=== PATIENT | female | born 1950 | race Caucasian/White ===

== ENCOUNTER 2022-10-12 07:57 | Outpatient (CLI) | payer MEDICARE, BC, SELFPAY ==
--- NOTE | 2022-10-12 08:15 | CRLHL7_ITS ---
For Patients: As a result of the Cures Act, medical imaging exams and procedure reports are released immediately into your electronic medical record. You may view this report before your referring provider. If you have questions, please contact your health care provider. BILATERAL SCREENING MAMMOGRAM WITH COMPUTER-AIDED DETECTION AND TOMOSYNTHESIS TECHNIQUE: CC and MLO views were obtained. These mammographic images have been obtained using full-field digital technique. These mammographic images were interpreted with the benefit of computer-aided detection. Breast Tomosynthesis was used in this interpretation. COMPARISON FILM: 05/14/21, 05/08/20, 12/07/18. FINDINGS: There are scattered areas of fibroglandular density IMPRESSION: There is no radiographic evidence for malignancy. ASSESSMENT: BI-RADS Category 1: Negative RECOMMENDATION: Routine screening mammogram in 1 year. A lay language report of this examination will be provided to the patient. Hardeep Zimmerman M.D. Diagnostic Radiologist [email or web address] PATTIE/remi / be/Dictated by: Hardeep Zimmerman MD @ 10/12/2022 12:04:00 PM (Electronically Signed)
== END 2022-10-12 07:58 | disposition home or self-care (01) ==
LOC: MAMMO 08:03
PROVIDERS: PCP Family Medicine; Visit Provider Family Medicine
DX: Z12.31 Encounter for screening mammogram for malignant neoplasm of breast (principal)
CPT/HCPCS: 77063; 77067

== ENCOUNTER 2022-10-17 07:23 | Outpatient (CLI) | payer MEDICARE, BC, SELFPAY | END 2022-10-17 07:24 | disposition home or self-care (01) | LOC: NFLDREF 19:35 | PROVIDERS: PCP Family Medicine; Referring Provider Family Medicine; Visit Provider Family Medicine | DX: Z00.00 Encounter for general adult medical examination without abnormal findings (principal); D50.9 Iron deficiency anemia, unspecified; E78.5 Hyperlipidemia, unspecified; I10 Essential (primary) hypertension | CPT/HCPCS: 80053; 80061; 82728 ==

== ENCOUNTER 2022-10-27 13:46 | Outpatient (CLI) | payer MEDICARE, BC, SELFPAY ==
--- NOTE | 2022-10-27 14:00 | CRLHL7_ITS ---
For Patients: As a result of the Century Cures Act, medical imaging exams and procedure reports are released immediately into your electronic medical record. You may view this report before your referring provider. If you have questions, please contact your health care provider. DXA BONE MINERAL DENSITY STUDY Reason for exam: Screening. Current height (in): 64.5. Weight (lb): 240 Menopause age: 56 Ethnicity: White. 1. Have you had a previous hip or vertebral fracture? No. 2. Have you had any fractures during your adult life which did not result from significant trauma (e.g., auto accident)? No. 3. Did either of your parents have a hip fracture? No. 4. Do you smoke? No. 5. Have you ever taken Glucocorticoids? No. 6. Do you have rheumatoid arthritis? No. 7. Do you have secondary osteoporosis? No. 8. Do you drink 3 or more alcoholic drinks per day? No. 9. Are you being treated for osteoporosis? No. 10. Have you ever taken any of the following medications: Actonel, Evista, Fosamax, Miacalcin, Reclast, Boniva, Forteo, HRT (i.e., estrogen/hormone therapy), Protelos, Prolia, Vitamin D, Calcium, other ??? please specify. ANSWER: No. 11. Do you have any of the following medical conditions: Anorexia or bulimia, asthma or emphysema, end stage renal disease, hyperparathyroidism, any seizure disorders, cancer, inflammatory bowel diseases, hysterectomy, other ??? please specify. ANSWER: No. 12. What was your maximum height (inches)? 65. 13. Do you perform weight bearing exercise regularly? No. 14. Do you regularly consume dairy products? Yes. 15. Do you drink caffeinated beverages? Yes. If female: 16. At what age did your period start? 14. 17. Are you premenopausal? No. 18. How many full-term pregnancies have you had? 2. 19. Have you ever missed your period for more than 6 months in a row (not including or menopause)? No. TECHNIQUE: Bone mineral density study was performed using the [employer]. FINDINGS: The results of the study expressed as bone mineral density (BMD) are as follows: Lumbar spine L1, L2, L4: BMD: 1.077 g/cm2. T-score: 0.4. Z-score: 2.5 Neck Left: BMD: 0.816 g/cm2. T-score: -0.3. Z-score: 1.5 Right: BMD: 0.820 g/cm2. T-score: -0.3. Z-score: 1.5 Total Left: BMD: 0.955 g/cm2. T-score: 0.1. Z-score: 1.6 Right: BMD: 0.999 g/cm2. T-score: 0.5. Z-score: 2.0 IMPRESSION: Normal bone density. *Comparison exams done prior to 12/2019 were performed on different unit, [facility]. COMPARISON: Compared with scan of 06/14/2010, the bone mineral density has decreased by 1.4 percent at the spine and decreased by 1.7 percent at the hip. VINCE MACIEL M.D. Diagnostic/Nuclear Medicine Radiologist [email or web address] JMN:chelsey barbosa/Dictated by: Vince Maciel MD @ 10/27/2022 2:39:00 PM (Electronically Signed)
== END 2022-10-27 13:47 | disposition home or self-care (01) ==
LOC: RAD 13:47
PROVIDERS: PCP Family Medicine; Visit Provider Family Medicine
DX: Z13.820 Encounter for screening for osteoporosis (principal)
CPT/HCPCS: 77080

== ENCOUNTER 2023-10-16 08:55 | Outpatient (CLI) | payer MEDICARE, BC, SELFPAY ==
--- NOTE | 2023-10-16 09:15 | MM_ITS ---
Patient: COURTNEY FERNÁNDEZ [facility] Facility:?[facility] Patient ID:?[id number] Site Patient ID:?[id number] Site :?1950 Study:?XRay-Breast Bilateral 3D W/CAD-10/16/2023 9:26:15 AM Ordering Physician:Hilary Final Report: BILATERAL SCREENING MAMMOGRAM WITH COMPUTER-AIDED DETECTION AND TOMOSYNTHESIS TECHNIQUE: CC and MLO views were obtained. These mammographic images have been obtained using full-field digital technique. These mammographic images were interpreted with the benefit of computer-aided detection. Breast Tomosynthesis was used in this interpretation. COMPARISON FILM: 10/12/22, 05/14/21, 05/08/20. FINDINGS: There are scattered areas of fibroglandular density. IMPRESSION: There is no radiographic evidence for malignancy. ASSESSMENT: BI-RADS Category 1: Negative RECOMMENDATION: Routine screening mammogram in 1 year. A lay language report of this examination will be provided to the patient. Hardeep Zimmerman M.D. Diagnostic Radiologist [email or web address] DSM/sp R& Transcribed: 3:02 p.m. SP/Dictated by: Hardeep Zimmerman MD @ 10/16/2023 10:58:00 AM Signed by:?Hardeep Zimmerman MD @10/16/2023 3:54:11 PM (Electronic Signature)
== END 2023-10-16 08:56 | disposition home or self-care (01) ==
PROVIDERS: PCP Family Medicine; Visit Provider Family Medicine
DX: Z12.31 Encounter for screening mammogram for malignant neoplasm of breast (principal)
CPT/HCPCS: 77063; 77067

== ENCOUNTER 2023-10-30 11:35 | Outpatient (CLI) | payer MEDICARE, BC, SELFPAY | END 2023-10-30 11:36 | disposition home or self-care (01) | LOC: NFLDREF 11-01 07:09 | PROVIDERS: PCP Family Medicine; Referring Provider Family Medicine; Visit Provider Family Medicine | DX: E78.5 Hyperlipidemia, unspecified (principal); I10 Essential (primary) hypertension; R73.9 Hyperglycemia, unspecified | CPT/HCPCS: 80053; 80061 ==

== ENCOUNTER 2023-11-26 21:04 | Emergency (ER) | payer MEDICARE, BC, SELFPAY ==
[2023-11-26] VITALS (7 sets, daily range): BP systolic 152–175; BP diastolic 79–94; PULSE 74–108; RESP 18; TEMP 36.6; O2SAT 88–99; BMI 33.8
--- NOTE | 2023-11-26 21:21 | CT_ITS ---
Patient: COURTNEY FERNÁNDEZ KALEN Facility:?[facility] Patient ID:?[id number] Site Patient ID:?[id number]. Site :?1950 Study:?CT-Abdomen/Pelvis W/ISOVUE 370 98CC-11/26/2023 10:15:41 PM Ordering Physician:SARKIS Final Report: INDICATION: Left flank, left lower quadrant abdominal pain TECHNIQUE: CT Abdomen and pelvis with i.v. contrast. Coronal and sagittal reformats were obtained. CONTRAST: 98 mL Isovue 370 COMPARISON: 07/15/2016 FINDINGS: Lower chest: Smooth septal thickening is present in the left lung base. Liver: In the right posterior segment of the liver, there is a stable linear hypodensity which may represent a parenchymal scar. Spleen: Unremarkable. Pancreas: Unremarkable. Gallbladder: Unremarkable. Kidney: Moderate right renal pelviectasis is present with enhancement of the urothelium of the left ureter noted. There is a stone in the distal left ureter measuring 5 mm. There is a stone in the lower pole of the left kidney that measures 7 mm. Adrenal: A 1 cm right adrenal nodule is noted without interval change. Bowel: Surgical bk are seen along the greater curvature of the stomach, likely due to prior bariatric gastric sleeve procedure. The appendix is normal in appearance and size. Vascular: Unremarkable. Lymph: Unremarkable. Peritoneum: Unremarkable. No pneumoperitoneum is seen. No significant ascites is noted. Pelvis: Unremarkable. Soft tissue: Unremarkable. Bone: Unremarkable for age. IMPRESSIONS: 1. Smooth septal thickening is present in the left lung base. This may be due to asymmetric interstitial edema. Follow-up imaging is recommended to document resolution and to exclude neoplastic infiltration. 2. A 1 cm right adrenal nodule is noted without interval change. 3. Moderate right renal pelviectasis is present with enhancement of the urothelium of the left ureter noted. There is a stone in the distal left ureter measuring 5 mm. Correlation with urinalysis is recommended to exclude a superimposed ascending urinary tract infection. Dictated by Gerber Matta MD @ 11/26/2023 10:41:51 PM Please note that all CT scans at this facility use dose modulation, iterative reconstruction, and/or weight-based dosing when appropriate to reduce radiation dose to as low as reasonably achievable. Dictated by: Gerber Matta MD @ 11/26/2023 22:42:05 Signed by:?Gerber Matta MD @11/26/2023 10:42:05 PM (Electronic Signature)
--- NOTE | 2023-11-26 21:25 | ED_ITS ---
HPI - Abdominal Pain General Date Seen: 11/26/23 Chief Complaint: Abdominal Pain Stated Complaint: Severe abdominal pain,vomiting bile Time Seen by Provider: 11/26/23 21:08 Source: patient Mode of arrival: ambulatory Limitations: no limitations History of Present Illness HPI narrative: Patient is a 72-year-old female with a history of recent diagnosis of adenocarcinoma of the lung and a previous episode of nephrolithiasis presenting for left lower abdomen, left flank pain. She states is they have been traveling to [place] and on the flight home started about 18:15 she has been noticing left flank pain. They came straight here from the airport. She has been having vomiting and is now dry heaving because she states there is nothing left in her stomach. States she has had a kidney stone before but does not remember what it feels like. She is described as a dull plane in her left flank. Denies fevers, chills, weakness, numbness, diarrhea, constipation. States she has not started treatment for adenocarcinoma yet in the only symptom she has is the changes in her voice. No other concerns noted at this time. Has not taking anything at for nausea or pain. Related Data Home Medications Medication Instructions Recorded Confirmed cetirizine 10 mg tablet 10 mg PO QDAY PRN 10/11/23 11/01/23 fluticasone propionate 50 1 spray intranasal QDAY 10/11/23 11/01/23 mcg/actuation nasal spray,suspension (Allergy Relief (fluticasone)) Previous Rx's Medication Instructions Recorded atorvastatin 10 mg tablet 10 mg PO QHS #90 tabs 11/01/23 lisinopril 5 mg tablet 5 mg PO QDAY #90 tabs 11/01/23 semaglutide 2 mg/dose (8 mg/3 mL) 2 mg (0.75 mL) subcut QWEEK #3 mL 11/01/23 subcutaneous pen injector (Ozempic) Allergies Allergy/AdvReac Type Severity Reaction Status Date / Time No Known Drug Allergies Allergy Verified 11/01/23 07:18 Review of Systems Status of ROS Reports: 10 or more systems reviewed and unremarkable except as noted in History and below [facility] Medical History Health care directive on file ?Z78.9 - Other specified health status (ICD-10) Health care directive on file ?Z78.9 - Other specified health status (ICD-10) Paralysis of left vocal cord ?J38.01 - Paralysis of vocal cords and larynx, unilateral (ICD-10) History of adenomatous polyp of colon ?Z86.010 - Personal history of colonic polyps (ICD-10) Morbid obesity with BMI of 40.0-44.9, adult ?E66.01 - Morbid (severe) obesity due to excess calories (ICD-10) ?Z68.41 - Body mass index [BMI] 40.0-44.9, adult (ICD-10) Morbid obesity ?E66.01 - Morbid (severe) obesity due to excess calories (ICD-10) Environmental allergies ?Z91.09 - Other allergy status, other than to drugs and biological substances (ICD-10) Encounter for counseling regarding advance directives (06/14/18) ?Z71.89 - Other specified counseling (ICD-10) Iron deficiency anemia (~04/2021) ?D50.9 - Iron deficiency anemia, unspecified (ICD-10) Hypertension ?I10 - Essential (primary) hypertension (ICD-10) Surgical History Status post phlebectomy ?Z98.890 - Other specified postprocedural states (ICD-10) S/P right knee arthroscopy (06/01/21) ?Z98.890 - Other specified postprocedural states (ICD-10) History of tonsillectomy (1959) ?Z90.89 - Acquired absence of other organs (ICD-10) History of sleeve gastrectomy (2015) ?Z90.3 - Acquired absence of stomach [part of] (ICD-10) History of arthroscopic knee surgery (07/14/15) ?Z98.890 - Other specified postprocedural states (ICD-10) Family History Mother Colon cancer, Onset Age: 86 Father Myocardial infarction, Onset Age: 66 Son Migraine Daughter Seizure Aunt Colon cancer Paternal Grandmother Colon cancer Social History Narrative: , retired [employer] [facility] [employer], 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, 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 Exercises regularly- 5x/week stationary bike, swim, weights 45min Non smoker Social drinker- 3/week What is your current living situation?: I presently have a place to live Problems where you live: no known problems In the past 12 months, utilities in danger of being shut off: no In past 12 months, lack of transportation kept you from medical appts, meetings, work, or getting things needed for daily living: no In the past 12 mos, have been you worried that your food would run out before you had money to buy more?: never true In the past 12 mos, the food you bought just didn't last and you didn't have money to buy more?: never true Smoking Status: Never smoker Do you use any of these nicotine containing products: None Second hand tobacco smoke exposure: No How often do you have a drink containing alcohol: never AUDIT-C Alcohol total score: 0 Non-prescribed substance use: denies use How often does anyone, including family, friends and others, physically hurt you : never How often does anyone, including family, friends and others, insult or talk down to you: never How often does anyone, including family, friends and others, threaten you with harm: never How often does anyone, including family, friends and others, scream or curse at you: never Little interest or pleasure in doing things: not at all Feeling down, depressed, or hopeless: several days service: No Exam Narrative: Exam Narrative: Const: Well-nourished, Well-developed, in moderate distress Eyes: PERRL, no conjunctival injection, and symmetrical lids HENT: Atraumatic external nose and ears. Moist mucous membranes. Neck: Symmetric, trachea midline, No thyromegaly. CVS: RRR, No murmurs or gallops. Peripheral pulses 2+ and equal in all extremities RESP: Unlabored respiratory effort. Clear to auscultation bilaterally. GI: Nontender/Nondistended, No rebound or guarding. No CVA tenderness MSK:Extremities w/o deformity, Normal Active ROM Skin: Warm, Dry. No rashes or lesions. Neuro: Normal Muscle tone, No focal neurological deficits. Psych: Awake, Alert, & Oriented x3. Appropriate mood and affect. Const: Vital Signs, click to edit/add: Vital Signs - 24 hr 11/26/23 21:10 11/26/23 22:19 11/26/23 22:34 Temperature 97.9 F Pulse Rate 95 108 H Pulse Rate [Pulse Oximeter] 74 Respiratory Rate 18 Blood Pressure Blood Pressure [Ri ght Forearm] 175/83 H Pulse Oximetry 96 88 95 Oxygen Delivery Me thod Room Air 11/26/23 22:35 Temperature Pulse Rate 98 Pulse Rate [Pulse Oximeter] Respiratory Rate Blood Pressure 152/79 H Blood Pressure [Ri ght Forearm] Pulse Oximetry 98 Oxygen Delivery Me thod Course Vital Signs Vital signs: Initial Vital Signs Temperature 97.9 F 11/26/23 21:10 Temperature Source Temporal Artery Scan 11/26/23 21:10 Pulse Rate 74 11/26/23 21:10 Respiratory Rate 18 11/26/23 21:10 Blood Pressure 175/83 H 11/26/23 21:10 Blood Pressure Mean 113 H 11/26/23 21:10 Blood Pressure Position Sitting 11/26/23 21:10 Pulse Oximetry 96 11/26/23 21:10 Oxygen Delivery Method Room Air 11/26/23 21:10 Vital Signs Temperature 97.9 F 11/26/23 21:10 Pulse Rate 74 11/26/23 21:10 Respiratory Rate 18 11/26/23 21:10 Blood Pressure 175/83 H 11/26/23 21:10 Pulse Oximetry 96 11/26/23 21:10 Oxygen Delivery Method Room Air 11/26/23 21:10 Temperature 97.9 F 11/26/23 21:10 Pulse Rate 98 11/26/23 22:35 Respiratory Rate 18 11/26/23 21:10 Blood Pressure 152/79 H 11/26/23 22:35 Pulse Oximetry 98 11/26/23 22:35 Oxygen Delivery Method Room Air 11/26/23 21:10 Medications Administered Medications: Generic Name Dose Route Start Last Admin Trade Name Freq PRN Reason Stop Dose Admin Sodium Chloride 1,000 mls @ 1,000 mls/hr 11/26/23 21:30 11/26/23 22:47 0.9 % Sodium Chloride 1000 Ml IV 11/26/23 22:29 Infused .Q1H BABITA Infusion Ketorolac Tromethamine 15 mg 11/26/23 21:21 11/26/23 21:37 Ketorolac 15 Mg/Ml Inj IVP 11/26/23 21:22 15 mg ONCE ONE Administration Ondansetron HCl 4 mg 11/26/23 21:21 11/26/23 21:36 Ondansetron 2 Mg/Ml Inj IVP 11/26/23 21:22 4 mg ONCE ONE Administration MDM - Abdominal Pain MDM Narrative Medical decision making narrative: Patient is 72-year-old female presenting for left flank/left lower quadrant abdominal pain. She does have previous history of gastric sleeve surgery. Pain is in left flank it started acutely. She is unable to sit still due to the pain. Initially this does look like a kidney stone. Will do a CT scan to better evaluate this. Will also give her nausea and pain medication and give her fluids as she states she feels like she is dehydrated. Were also ordered EKG, troponin, COVID/flu/RSV, urinalysis, CBC, CMP. Patient is feeling much better after the Toradol. No other complaints at this time. Lab work returned showing no concerning abnormalities. Urinalysis shows blood in the urine but no signs of UTI. COVID/flu/RSV negative troponin negative EKG shows no concerning findings. CT scan was done and returned showing right renal pelviectasis and enhancement of the left ureter. There is a distal left 5 mm kidney stone. This is likely the cause of her symptoms. Again urinalysis shows no signs of UTI. She is doing well be discharged with Toradol and Zofran through [facility]. Lab Data Labs: Lab Results 11/26/23 11/26/23 11/26/23 Range/Units 21:21 21:39 22:30 WBC 9.12 (4.50-11.00) K/uL RBC 4.16 (4.00-5.20) m/uL Hgb 13.5 (12.0-16.0) gm/dL Hct 40.8 (33.0-51.0) % MCV 98 (80-100) fL MCH 33 (26-34) pg MCHC 33 (32-36) gm/dL RDW Coeff of Colin 13.5 (11.5-15.5) % Plt Count 270 (140-440) K/uL Neut % (Auto) 82.6 H (42.0-72.0) % Lymph % (Auto) 11.5 L (20-44) % [place] % (Auto) 5.3 (0.0-11.0) % Eos % (Auto) 0.4 (0.0-7.0) % Baso % (Auto) 0.1 (0.0-3.0) % Neut # (Auto) 7.50 H (1.7-7.0) K/uL Lymph # (Auto) 1.00 (0.90-2.90) K/uL [place] # (Auto) 0.50 (0.00-0.90) K/UL Eos # (Auto) 0.04 (0.00-0.50) K/uL Baso # (Auto) 0.01 (0.00-0.30) K/uL Abs Immat Gran (auto) 0.01 (0.00-0.30) K/uL Imm/Tot Granulo (auto) 0.1 % Sodium 139 (135-149) mmol/L Potassium 3.8 (3.6-5.1) mmol/L Chloride 108 (96-114) mmol/L Carbon Dioxide 22 (20-32) mmol/L Anion Gap 9 (7-15) mEq/L BUN 19 (7-30) mg/dL Creatinine 0.8 (0.5-1.5) mg/dL Estimated Creat Clear 47.10 Estimated GFR 79 ml/min Glucose 135 H (60-115) mg/dL Calcium 9.6 (8.4-10.6) mg/dL Total Bilirubin 0.8 (0.1-1.5) mg/dL AST 30 (12-35) U/L ALT 18 (4-35) U/L Alkaline Phosphatase 74 (40-150) U/L Total Protein 7.6 (6.0-8.3) g/dL Albumin 4.6 (3.3-5.0) g/dL Urine Color Yellow (Yellow) Urine Appearance Clear (Clear) Urine pH 7.0 (5.0-8.5) Ur Specific [place] 1.015 (1.000-1.030) Urine Protein Negative (Negative) Urine Glucose (UA) Negative (Negative) Urine Ketones 1+ A (Negative) Urine Blood 3+ A (Negative) Urine Nitrite Negative (Negative) Urine Bilirubin Negative (Negative) Urine Urobilinogen 0.2 (0.2-1.0) Ur Leukocyte Esterase Negative (Negative) Urine RBC 25-50 A (0-2) Urine WBC 0-2 (0-5) Ur Squamous Epith Cells Few (None-Few) Urine Bacteria None (None) SARS-CoV-2 (PCR) Negative SARS-CoV-2 (Negative) Influenza Type A (PCR) Negative PCR FLU A (Negative) Influenza Type B (PCR) Negative PCR FLU B (Negative) RSV (PCR) Negative PCR RSV (Negative) POC Troponin I 0.00 L (0.01-0.04) ng/ml Imaging Data CT scan abdomen pelvis: Radiologist's impression: 1. Smooth septal thickening is present in the left lung base. This may be due to asymmetric interstitial edema. Follow-up imaging is recommended to document resolution and to exclude neoplastic infiltration. 2. A 1 cm right adrenal nodule is noted without interval change. 3. Moderate right renal pelviectasis is present with enhancement of the urothelium of the left ureter noted. There is a stone in the distal left ureter measuring 5 mm. Correlation with urinalysis is recommended to exclude a superimposed ascending urinary tract infection. Dictated by Gerber Matta MD @ 11/26/2023 10:41:51 PM Please note that all CT scans at this facility use dose modulation, iterative reconstruction, and/or weight-based dosing when appropriate to reduce radiation dose to as low as reasonably achievable. Dictated by: Gerber Matta MD @ 11/26/2023 22:42:05 ECG Data Attestation: I personally reviewed and interpreted this ECG as follows: Prior ECG tracings: not available for review Interpretation: Normal sinus rhythm with a first-degree AV block, normal axis, rest of intervals within normal limits, no ST or T-wave abnormalities Discharge Plan Discharge Clinical Impression: Left nephrolithiasis Patient Disposition: Home, Self-Care Condition: Improved Instructions: Kidney Stones (ED) Additional Instructions: Take the Toradol as needed for pain. Use Zofran as needed for nausea. Stone should pass on its own. If he starts developing symptoms of a urinary tract infection return to emergency department or see your primary care provider for evaluation for UTI. Return for any other new or worsening symptoms. Prescriptions: No Action cetirizine 10 mg tablet 10 mg PO QDAY PRN fluticasone propionate [Allergy Relief (fluticasone)] 50 mcg/actuation spray,suspension 1 spray intranasal QDAY Rx Instructions: administer into each nostril lisinopril 5 mg tablet 5 mg PO QDAY Qty: 90 3RF atorvastatin 10 mg tablet 10 mg PO QHS Qty: 90 3RF Ozempic 2 mg/dose (8 mg/3 mL) pen injector 2 mg subcut QWEEK Qty: 3 4RF Follow Up/Referrals: Nidia Miramontes MD [Primary Care Provider] - Stand Alone Forms: [employer] Info Instructions
[2023-11-26] MEDS: 0.9 % SODIUM CHLORIDE 1000 ml 1,000 ML IV (21:35)
[2023-11-26] MEDS: ONDANSETRON 2 MG/ML inj 4 MG IVP (21:36)
[2023-11-26] MEDS: KETOROLAC 15 MG/ML inj IVP (21:37)
[2023-11-26 21:44] LABS: Basophils Absolute Auto 0.01 K/uL (0.00-0.30); Basophils Percent Auto 0.1 % (0.0-3.0); Eosinophils Absolute Auto 0.04 K/uL (0.00-0.50); Eosinophils Percent Auto 0.4 % (0.0-7.0); Hematocrit 40.8 % (33.0-51.0); Hemoglobin* 13.5 gm/dL (12.0-16.0); Immature Granulocytes Abs Auto 0.01 K/uL (0.00-0.30); Immature Granulocytes Pct Auto 0.1 %; Lymphocytes Percent Auto 11.5 % (20-44); Mean Corpuscular HGB Conc 33 gm/dL (32-36); Mean Corpuscular Hemoglobin 33 pg (26-34); Mean Corpuscular Volume 98 fL (80-100); Monocytes Percent Auto 5.3 % (0.0-11.0); Neutrophils Percent Auto 82.6 % (42.0-72.0); Platelet Count* 270 K/uL (140-440); RDW Coefficient of Variation % 13.5 % (11.5-15.5); Red Blood Count 4.16 m/uL (4.00-5.20); White Blood Count* 9.12 K/uL (4.50-11.00)
[2023-11-26 21:45] LABS: Slide Review Reflex No
[2023-11-26 21:57] LABS: Albumin* 4.6 g/dL (3.3-5.0); Chloride* 108 mmol/L (96-114)
[2023-11-26 21:58] LABS: Potassium* 3.8 mmol/L (3.6-5.1); Sodium* 139 mmol/L (135-149)
[2023-11-26 22:00] LABS: Anion Gap 9 mEq/L (7-15); Aspartate Amino Transferase* 30 U/L (12-35); Bilirubin Total* 0.8 mg/dL (0.1-1.5); Blood Urea Nitrogen* 19 mg/dL (7-30); Carbon Dioxide* 22 mmol/L (20-32); Creatinine* 0.8 mg/dL (0.5-1.5); Estimated Glomerular Filt Rate 79 ml/min; Total Protein* 7.6 g/dL (6.0-8.3)
[2023-11-26 22:01] LABS: Alanine Aminotransferase* 18 U/L (4-35); Alkaline Phosphatase* 74 U/L (40-150); Calcium* 9.6 mg/dL (8.4-10.6); Glucose* 135 mg/dL (60-115)
[2023-11-26 22:21] LABS: PCR FLU A Negative PCR FLU A (Negative); PCR FLU B Negative PCR FLU B (Negative); PCR RSV Negative PCR RSV (Negative); SARS PCR* Negative SARS-CoV-2 (Negative)
[2023-11-26 22:40] LABS: Appearance Urine Clear (Clear); Bilirubin Urine Negative (Negative); Blood Urine 3+ (Negative); Color Urine Yellow (Yellow); Glucose Urine Negative (Negative); Ketones Urine 1+ (Negative); Leukocyte Esterase Urine Negative (Negative); Nitrite Urine Negative (Negative); Protein Urine Negative (Negative); Specific Gravity Urine 1.015 (1.000-1.030); Urobilinogen Urine 0.2 (0.2-1.0)
[2023-11-26 22:49] LABS: RBC Urine 25-50 (0-2); Squamous Epithelial Cell Urine Few (None-Few); WBC Urine 0-2 (0-5)
== END 2023-11-26 23:27 | disposition home or self-care (01) ==
PROVIDERS: Emergency Provider Student in an Organized Health Care Education/Training Program; PCP Family Medicine
DX: N20.0 Calculus of kidney (principal)
CPT/HCPCS: 36415; 74177; 80053; 81001; 82565; 84484; 85025; 87631; 93005; 96374; 96375; 99283; 99284; 99285; J1885; J2405; J7030; Q9967

== ENCOUNTER 2023-12-31 16:14 | Emergency (ER) | payer MEDICARE, BC, SELFPAY ==
[2023-12-31 16:31] VITALS: BP 122/73; PULSE 86; RESP 18; TEMP 36.6; O2SAT 97; BMI 33.5
--- NOTE | 2023-12-31 17:42 | ED.ABDPAIN ---
HPI - Abdominal Pain General Date Seen: 12/31/23 Chief Complaint: Abdominal Pain Stated Complaint: Lower L side/back pain Time Seen by Provider: 12/31/23 16:30 Source: patient Mode of arrival: ambulatory Limitations: no limitations History of Present Illness HPI narrative: Patient reports gas and distention all day. She has had a few small bowel movements and went to bathroom and had intense lower left quad pain that lasted 15 minutes. This has now completely gone away, she wonders if she may have passed a urinary stone Patient is seen in room 5, she has no current complaints. Her pain went away on the drive over to the ER is able to walk and talk normally. Passed some gas before she came in, she said the pain which was in the left side of her lower back region. Was much like a previous kidney stone she had few weeks ago. She did not take any medications for this also she denies any fevers chills or sweats, she has had no other issues at all. She is being currently treated by [facility] for lung cancer. elicited complaint: abdominal pain Related Data Patient : No Home Medications ?Medication ?Instructions ?Recorded ?Confirmed cetirizine 10 mg tablet 10 mg PO QDAY PRN 10/11/23 11/01/23 fluticasone propionate 50 1 spray intranasal QDAY 10/11/23 12/31/23 mcg/actuation nasal spray,suspension (Allergy Relief (fluticasone)) dabrafenib 75 mg capsule (Tafinlar) 150 mg PO BID 12/31/23 12/31/23 Previous Rx's ?Medication ?Instructions ?Recorded atorvastatin 10 mg tablet 10 mg PO QHS #90 tabs 11/01/23 lisinopril 5 mg tablet 5 mg PO QDAY #90 tabs 11/01/23 semaglutide 2 mg/dose (8 mg/3 mL) 2 mg (0.75 mL) subcut QWEEK #3 mL 11/01/23 subcutaneous pen injector (Ozempic) Allergies Allergy/AdvReac Type Severity Reaction Status Date / Time No Known Drug Allergies Allergy Verified 11/01/23 07:18 Review of Systems Status of ROS Reports: 10 or more systems reviewed and unremarkable except as noted in History and below [facility] Medical History Health care directive on file ?Z78.9 - Other specified health status (ICD-10) Health care directive on file ?Z78.9 - Other specified health status (ICD-10) Paralysis of left vocal cord ?J38.01 - Paralysis of vocal cords and larynx, unilateral (ICD-10) History of adenomatous polyp of colon ?Z86.010 - Personal history of colonic polyps (ICD-10) Morbid obesity with BMI of 40.0-44.9, adult ?E66.01 - Morbid (severe) obesity due to excess calories (ICD-10) ?Z68.41 - Body mass index [BMI] 40.0-44.9, adult (ICD-10) Morbid obesity ?E66.01 - Morbid (severe) obesity due to excess calories (ICD-10) Environmental allergies ?Z91.09 - Other allergy status, other than to drugs and biological substances (ICD-10) Encounter for counseling regarding advance directives (06/14/18) ?Z71.89 - Other specified counseling (ICD-10) Iron deficiency anemia (~04/2021) ?D50.9 - Iron deficiency anemia, unspecified (ICD-10) Hypertension ?I10 - Essential (primary) hypertension (ICD-10) Surgical History Status post phlebectomy ?Z98.890 - Other specified postprocedural states (ICD-10) S/P right knee arthroscopy (06/01/21) ?Z98.890 - Other specified postprocedural states (ICD-10) History of tonsillectomy (1959) ?Z90.89 - Acquired absence of other organs (ICD-10) History of sleeve gastrectomy (2016) ?Z90.3 - Acquired absence of stomach [part of] (ICD-10) History of arthroscopic knee surgery (07/14/15) ?Z98.890 - Other specified postprocedural states (ICD-10) Family History Mother Colon cancer, Onset Age: 86 Father Myocardial infarction, Onset Age: 66 Son Migraine Daughter Seizure Aunt Colon cancer Paternal Grandmother Colon cancer Social History Narrative: , 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[employer], 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, adult 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 Exercises regularly- 5x/week stationary bike, swim, weights 45min Non smoker Social drinker- 3/week What is your current living situation?: I presently have a place to live Problems where you live: no known problems In the past 12 months, utilities in danger of being shut off: no In past 12 months, lack of transportation kept you from medical appts, meetings, work, or getting things needed for daily living: no In the past 12 mos, have been you worried that your food would run out before you had money to buy more?: never true In the past 12 mos, the food you bought just didn't last and you didn't have money to buy more?: never true Smoking Status: Never smoker Do you use any of these nicotine containing products: None Second hand tobacco smoke exposure: No How often do you have a drink containing alcohol: 2-4 times a month AUDIT-C Alcohol total score: 2 Non-prescribed substance use: denies use How often does anyone, including family, friends and others, physically hurt you: never How often does anyone, including family, friends and others, insult or talk down to you: never How often does anyone, including family, friends and others, threaten you with harm: never How often does anyone, including family, friends and others, scream or curse at you: never Little interest or pleasure in doing things: not at all Feeling down, depressed, or hopeless: several days service: No Exam Narrative: Exam Narrative: On examination in room 5 she is in no apparent distress, Patient is speaking normally, no problem with slurring words, oriented x3. Head eyes ears nose and throat exam show equal pupils, no scleral icterus, extraocular muscles are normal, no facial droop, speech is normal, trachea normal and midline. Thyroid normal midline palpable not enlarged. Chest shows symmetrical rise bilaterally, normal auscultation with no wheezes, no increased work of breathing, no overt bruising or lesions seen, no tenderness is noted on auscultation. Heart sounds normal with no S3-S4 no murmurs clicks or gallops. Abdomen shows no obvious masses or hepatosplenomegaly, no organomegaly, bowel sounds are normal in all quadrants. No tenderness is noted also in all quadrants. Upper and lower extremities show normal power, normal range of motion, pulses are normal, sensations normal, fine motor movements are normal, pelvis is stable to rocking. Cervical spine shows normal range of motion, and palpably not tender. Thoracic spine shows normal range of motion, and palpably not tender, lumbar spine shows no tenderness to palpation percussion and is otherwise normal range of motion. Skin shows no rashes, petechiae or eccymosis. Const: Vital Signs, click to edit/add: Vital Signs - 24 hr 12/31/23 16:31 Temperature 97.8 F Pulse Rate [Femora l] 86 Respiratory Rate 18 Blood Pressure [Ri ght Upper Arm] 122/73 Pulse Oximetry 97 Oxygen Delivery Me thod Room Air Documenting provider has reviewed patient's vital signs: yes Course Vital Signs Vital signs: Initial Vital Signs Temperature 97.8 F 12/31/23 16:31 Temperature Source Temporal Artery Scan 12/31/23 16:31 Pulse Rate 86 12/31/23 16:31 Respiratory Rate 18 12/31/23 16:31 Blood Pressure 122/73 12/31/23 16:31 Blood Pressure Mean 89 12/31/23 16:31 Pulse Oximetry 97 12/31/23 16:31 Oxygen Delivery Method Room Air 12/31/23 16:31 Vital Signs Temperature 97.8 F 12/31/23 16:31 Pulse Rate 86 12/31/23 16:31 Respiratory Rate 18 12/31/23 16:31 Blood Pressure 122/73 12/31/23 16:31 Pulse Oximetry 97 12/31/23 16:31 Oxygen Delivery Method Room Air 12/31/23 16:31 Temperature 97.8 F 12/31/23 16:31 Pulse Rate 86 12/31/23 16:31 Respiratory Rate 18 12/31/23 16:31 Blood Pressure 122/73 12/31/23 16:31 Pulse Oximetry 97 12/31/23 16:31 Oxygen Delivery Method Room Air 12/31/23 16:31 MDM - Abdominal Pain MDM Narrative Medical decision making narrative: During the evaluation of this patient I considered multiple differential diagnosis including life-threatening differentials which are appendicitis, aortic aneurysm, mesenteric ischemia, bowel perforation, ectopic , volvulus and bowel obstruction, other differential diagnosis include but are not limited to inflammatory bowel disease, cholecystitis, pancreatitis, hepatitis, gastritis, GERD, diverticulitis, peptic ulcer disease, pyelonephritis/UTI, renal colic/stone, pelvic inflammatory disease, cervicitis, endometritis, intrauterine , dysfunctional uterine bleeding, ovarian cyst/torsion, spontaneous as well as other etiologies Given that her pain is gone away, this seems like it could be more likely from gas, or possibly a kidney stone as she I did review the previous CT she had and she had 3 small calcifications in her left kidney. Medical Records Attestation: I reviewed the patient's medical records. Discharge Plan Discharge Clinical Impression: Resolved abdominal pain, History of lung cancer, History of renal colic Patient Disposition: Home, Self-Care Condition: Improved Additional Instructions: Home rest lots of fluids see how it goes, return if recurrent issues. But right now everything looks fine. Activity Level: Light activity Prescriptions: No Action cetirizine 10 mg tablet 10 mg PO QDAY PRN fluticasone propionate [Allergy Relief (fluticasone)] 50 mcg/actuation spray,suspension 1 spray intranasal QDAY Rx Instructions: administer into each nostril lisinopril 5 mg tablet 5 mg PO QDAY Qty: 90 3RF atorvastatin 10 mg tablet 10 mg PO QHS Qty: 90 3RF Ozempic 2 mg/dose (8 mg/3 mL) pen injector 2 mg subcut QWEEK Qty: 3 4RF Tafinlar 75 mg capsule 150 mg PO BID Follow Up/Referrals: Nidia Miramontes MD [Primary Care Provider] - Stand Alone Forms: [facility] Info Instructions
== END 2023-12-31 17:32 | disposition home or self-care (01) ==
LOC: ED 17:12
PROVIDERS: Emergency Provider Family Medicine; PCP Family Medicine
DX: R10.9 Unspecified abdominal pain (principal); C34.92 Malignant neoplasm of unspecified part of left bronchus or lung
CPT/HCPCS: 99282; 99283; 99284

== ENCOUNTER 2024-10-25 10:01 | Outpatient (CLI) | payer MEDICARE, BC, SELFPAY ==
--- NOTE | 2024-10-25 10:15 | CRLHL7_ITS ---
For Patients: As a result of the Century Cures Act, medical imaging exams and procedure reports are released immediately into your electronic medical record. You may view this report before your referring provider. If you have questions, please contact your health care provider. BILATERAL SCREENING MAMMOGRAM WITH COMPUTER-AIDED DETECTION AND TOMOSYNTHESIS TECHNIQUE: CC and MLO views were obtained. These mammographic images have been obtained using full-field digital technique. These mammographic images were interpreted with the benefit of computer-aided detection. Breast Tomosynthesis was used in this interpretation. COMPARISON FILM: 10/16/23, 10/12/22, 06/08/21. FINDINGS: There are scattered areas of fibroglandular density. IMPRESSION: There is no radiographic evidence for malignancy. ASSESSMENT: BI-RADS Category 1: Negative RECOMMENDATION: Routine screening mammogram in 1 year. A lay language report of this examination will be provided to the patient. Hardeep Zimmerman M.D. Diagnostic Radiologist [email or web address] SP/Dictated by: Hardeep Zimmerman MD @ 10/31/2024 10:18:00 AM (Electronically Signed)
== END 2024-10-25 10:02 | disposition home or self-care (01) ==
LOC: MAMMO 10:02
PROVIDERS: PCP Family Medicine; Visit Provider Family Medicine
DX: Z12.31 Encounter for screening mammogram for malignant neoplasm of breast (principal)
CPT/HCPCS: 77063; 77067

== ENCOUNTER 2024-10-30 07:24 | Outpatient (CLI) | payer MEDICARE, BC, SELFPAY | END 2024-10-30 07:25 | disposition home or self-care (01) | LOC: NFLDREF 11-03 08:42 | PROVIDERS: PCP Family Medicine; Referring Provider Family Medicine; Visit Provider Family Medicine | DX: E78.5 Hyperlipidemia, unspecified (principal); I10 Essential (primary) hypertension; R53.83 Other fatigue; E66.01 Morbid (severe) obesity due to excess calories; R71.8 Other abnormality of red blood cells; Z13.29 Encounter for screening for other suspected endocrine disorder; Z13.21 Encounter for screening for nutritional disorder | CPT/HCPCS: 80053; 80061; 82607; 84443 ==